=== PATIENT | male | born 2000 | race Hispanic/Latino ===

== ENCOUNTER 2023-07-15 20:24 | Emergency (ER) | payer MEDICAID ==
[~2023-07-15] VITALS: Ht 157.5 cm; Wt 95.3 kg
[2023-07-15] MEDS ORDERED: IBUP-2070 PO (23:48)
[2023-07-15 23:59] VITALS: BP 137/81; PULSE 90; RESP 18; O2SAT 99
[2023-07-16] MEDS ORDERED: IBUPROFEN 800 MG TAB PO ONE
== END 2023-07-15 23:58 | disposition home or self-care (01) ==
LOC: EDH 20:24
DX: M94.0 Chondrocostal junction syndrome [Tietze] (principal); H54.8 Legal blindness, as defined in USA
CPT/HCPCS: 71045; 93005